=== PATIENT | male | born 1950 | race Caucasian/White ===

== ENCOUNTER 2024-10-23 11:39 | Emergency (ER) | payer MEDICARE ==
[2024-10-23 12:29] LABS: #Basophils 0.06 10x3/uL (0.0-0.2); #Eosinophils 0.23 10x3/uL (0.0-0.7); #Monocytes 0.78 10x3/uL (0.11-0.59); #Neutrophils 5.94 10x3/uL (1.40-6.50); %Basophils 0.7 % (0.0-1.0); %Eosinophils 2.6 % (0.0-10.0); %Lymphocytes 20.1 % (21.0-51.0); %Monocytes 8.9 % (0.0-10.0); %Neutrophils 67.4 % (42.0-75.0); Hematocrit 43.5 % (42.0-52.0); Hemoglobin 14.7 g/dL (14.0-18.0); Mean Corpuscular Hemoglobin 28.5 pg (27.0-31.0); Mean Corpuscular Volume 84.3 fL (78.0-98.0); Platelet Count 358 10x3/uL (130-400); Red Blood Cell (RBC) Count 5.16 mill/uL (4.70-6.10); White Blood Cell (WBC) Count 8.81 10x3/uL (4.8-10.8)
[2024-10-23 12:46] LABS: Bacteria/HPF None Seen HPF (None Seen); CAUTI Indications for Culture Dysuria,urgency,freq; Glucose, Urine (Dipstick) Normal (Negative); Leukocyte Negative Leu/uL (Negative); Protein, Urine (Dipstick) 10 mg/dL (Neg-Trace); RBC/HPF 0-3 HPF (0-3); Specific Gravity, Urine 1.027 (1.002-1.036); WBC/HPF 0-3 HPF (0-3)
[2024-10-23 12:47] LABS: Urine Culture Reflex No No
[2024-10-23] MEDS ORDERED: Iopamidol-370 76% 500 ML MDV (1 ML CHARGE) ONE (12:54)
[2024-10-23 13:07] LABS: Anion Gap 14 mmol/L (10-20); BUN (Urea Nitrogen) 16 mg/dL (8.4-25.7); Calc. Creatinine Clearance 0 mL/min (70-130); Carbon Dioxide 24 mmol/L (23-31); Chloride 103 mmol/L (98-107); Potassium 3.1 mmol/L (3.5-5.1); Sodium 138 mmol/L (136-145)
[2024-10-23 13:08] LABS: ALT (SGPT) 14 U/L (Less than 45); AST (SGOT) 34 U/L (11-34); Albumin 3.9 g/dL (3.1-4.5); Alkaline Phosphatase 111 U/L (40-110); Bilirubin, Total 0.4 mg/dL (0.3-1.2); Calcium 9.0 mg/dL (7.8-10.44); Globulin 3.5 g/dL (2.4-3.5); Glucose 119 mg/dL (83-110); Lipase 18 U/L (8-78)
[2024-10-23 13:11] LABS: Troponin I Less than 0.010 ng/mL (< 0.028)
[2024-10-23] MEDS ORDERED: Acetaminophen 325 MG TAB PO PRN (15:26)
[2024-10-23] MEDS ORDERED: Glucagon 1 MG/ML KIT IM PRN (15:26)
[2024-10-23] MEDS ORDERED: Dextrose 50% Abboject 50 ML SYRINGE SLOW IVP PRN (15:26)
[2024-10-23] MEDS ORDERED: hydrALAZINE 20 MG/ML VIAL SLOW IVP PRN (15:26)
[2024-10-23] MEDS ORDERED: Ondansetron PF 4 MG/2 ML Vial IVP PRN (15:26)
[2024-10-23] MEDS ORDERED: Acetaminophen/Codeine 30-300mg Tablet PO PRN (15:29)
[2024-10-23] MEDS ORDERED: Famotidine/PF 20 mg/2ml Vial ONE (16:04)
[2024-10-23] MEDS ORDERED: diphenhydrAMINE 50 MG/ML VIAL ONE (16:04)
[2024-10-23 16:07] LABS: INR-International Normal Ratio 1.1; PTT 32.8 sec (22.9-36.1); Prothrombin Time 13.8 sec (12.0-14.7)
[2024-10-23] MEDS ORDERED: Ketorolac Tromethamine 30 MG (1 mL) VIAL IVP SCH (18:00)
[2024-10-23] MEDS ORDERED: Famotidine/PF 20 mg/2ml Vial SLOW IVP SCH (21:00)
[2024-10-23] MEDS ORDERED: Famotidine 20 MG TAB PO SCH (21:00)
== END 2024-10-23 18:30 | disposition home or self-care (01) ==
LOC: ERS 11:39
DX: R19.7 Diarrhea, unspecified (principal); I10 Essential (primary) hypertension
CPT/HCPCS: 74177; 80053; 81001; 83690; 84484; 85025; 85610; 85730; J1200; J1308; J2543; J2919; Q9967; 82274; 96374; 96375; J7120

== ENCOUNTER 2024-10-25 09:13 | Observation (INO) | payer MEDICARE ==
[2024-10-25] MEDS ORDERED: Iopamidol 370 76% 100 ML VIAL ONE (10:00)
[2024-10-25] MEDS ORDERED: Ondansetron PF 4 MG/2 ML Vial ONE ×2 (10:35→16:31)
[2024-10-25 10:37] LABS: #Basophils 0.06 10x3/uL (0.0-0.2); #Eosinophils 0.19 10x3/uL (0.0-0.7); #Monocytes 0.71 10x3/uL (0.11-0.59); #Neutrophils 5.38 10x3/uL (1.40-6.50); %Basophils 0.7 % (0.0-1.0); %Eosinophils 2.4 % (0.0-10.0); %Lymphocytes 20.3 % (21.0-51.0); %Monocytes 8.9 % (0.0-10.0); %Neutrophils 67.2 % (42.0-75.0); Hematocrit 40.9 % (42.0-52.0); Hemoglobin 13.8 g/dL (14.0-18.0); Mean Corpuscular Hemoglobin 28.3 pg (27.0-31.0); Mean Corpuscular Volume 84.0 fL (78.0-98.0); Platelet Count 361 10x3/uL (130-400); Red Blood Cell (RBC) Count 4.87 mill/uL (4.70-6.10); White Blood Cell (WBC) Count 8.01 10x3/uL (4.8-10.8)
[2024-10-25 10:54] LABS: Bacteria/HPF None Seen HPF (None Seen); CAUTI Indications for Culture Pelvic or flank pain; Glucose, Urine (Dipstick) Normal (Negative); Leukocyte Negative Leu/uL (Negative); Protein, Urine (Dipstick) Negative (Neg-Trace); RBC/HPF 0-3 HPF (0-3); Specific Gravity, Urine 1.022 (1.002-1.036); WBC/HPF 0-3 HPF (0-3)
[2024-10-25 10:54] LABS: CRP, High Sensitivity at Bryan 0.57 mg/dL (< or = 0.5)
[2024-10-25 10:55] LABS: Urine Culture Reflex No No
[2024-10-25 10:55] LABS: ALT (SGPT) 13 U/L (Less than 45); AST (SGOT) 24 U/L (11-34); Albumin 3.4 g/dL (3.1-4.5); Alkaline Phosphatase 102 U/L (40-110); Anion Gap 16 mmol/L (10-20); BUN (Urea Nitrogen) 16 mg/dL (8.4-25.7); Bilirubin, Total 0.2 mg/dL (0.3-1.2); Calc. Creatinine Clearance 0 mL/min (70-130); Calcium 8.5 mg/dL (7.8-10.44); Carbon Dioxide 19 mmol/L (23-31); Chloride 107 mmol/L (98-107); Globulin 3.0 g/dL (2.4-3.5); Glucose 98 mg/dL (83-110); Lipase 21 U/L (8-78); Magnesium 2.1 mg/dL (1.6-2.6); Potassium 4.2 mmol/L (3.5-5.1); Sodium 138 mmol/L (136-145)
[2024-10-25] MEDS ORDERED: LevoFLOXacin D5W 500 mg (100 mL) BAG ONE (15:33)
[2024-10-25] MEDS ORDERED: metroNIDAZOLE 500 MG (100 mL) BAG ONE (15:33)
[2024-10-25] MEDS ORDERED: PROPOFOL 20 ML ONE (15:35)
[2024-10-25] MEDS ORDERED: fentaNYL PF 100 MCG/2 ML SYRINGE ONE (15:35)
[2024-10-25] MEDS ORDERED: Lidocaine 1% PF 5 ML VIAL ONE (15:36)
[2024-10-25] MEDS ORDERED: Rocuronium Bromide 10 MG/ML (10ML VIAL) ONE (15:36)
[2024-10-25] MEDS ORDERED: SUCCINYLCHOLINE/SOD CL,ISO/PF 200 MG/10 ML SYRINGE FS ONE (15:36)
[2024-10-25] MEDS ORDERED: PHENYLEPHRINE-NS 100 MCG/ML 10 ML SYRINGE ONE (16:05)
[2024-10-25] MEDS ORDERED: Bupivacaine 0.25% HCL 30 ML VIAL ONE (16:10)
[2024-10-25] MEDS ORDERED: SUGAMMADEX SODIUM 200 MG/2 ML VIAL ONE (16:28)
[2024-10-25 17:46] VITALS: BMI 29.9
[2024-10-25] MEDS: Acetaminophen 325 MG TAB PO PRN (17:55)
[2024-10-25] MEDS: Ketorolac Tromethamine 30 MG (1 mL) VIAL IVP SCH (17:56)
[2024-10-25] MEDS: hydrALAZINE 20 MG/ML VIAL SLOW IVP PRN (17:56)
[2024-10-25] MEDS: Famotidine/PF 20 mg/2ml Vial SLOW IVP SCH (19:40)
[2024-10-25] MEDS: Famotidine 20 MG TAB PO SCH (20:04)
[2024-10-25] MEDS: PNEUMOC 20-VAL CONJ-DIP CRM/PF 0.5 ML SYRINGE IM ONE (20:36)
[2024-10-26] MEDS: Ondansetron PF 4 MG/2 ML Vial IVP PRN (00:02)
[2024-10-26 04:15] VITALS: TEMP 97.8
[2024-10-26 07:05] LABS: #Basophils 0.04 10x3/uL (0.0-0.2); #Eosinophils 0.09 10x3/uL (0.0-0.7); #Monocytes 0.73 10x3/uL (0.11-0.59); #Neutrophils 9.29 10x3/uL (1.40-6.50); %Basophils 0.3 % (0.0-1.0); %Eosinophils 0.8 % (0.0-10.0); %Lymphocytes 12.5 % (21.0-51.0); %Monocytes 6.3 % (0.0-10.0); %Neutrophils 79.7 % (42.0-75.0); Hematocrit 43.4 % (42.0-52.0); Hemoglobin 14.5 g/dL (14.0-18.0); Mean Corpuscular Hemoglobin 27.7 pg (27.0-31.0); Mean Corpuscular Volume 83.0 fL (78.0-98.0); Platelet Count 375 10x3/uL (130-400); Red Blood Cell (RBC) Count 5.23 mill/uL (4.70-6.10); White Blood Cell (WBC) Count 11.66 10x3/uL (4.8-10.8)
[2024-10-26 07:24] LABS: Anion Gap 14 mmol/L (10-20); BUN (Urea Nitrogen) 8 mg/dL (8.4-25.7); Calc. Creatinine Clearance 117 mL/min (70-130); Calcium 8.6 mg/dL (7.8-10.44); Carbon Dioxide 23 mmol/L (23-31); Chloride 103 mmol/L (98-107); Glucose 99 mg/dL (83-110); Potassium 3.6 mmol/L (3.5-5.1); Sodium 136 mmol/L (136-145)
[2024-10-26] MEDS ORDERED: APALUTAMIDE 240 MG PO SCH ×2 (09:00)
[2024-10-26] MEDS: Losartan 25 MG TAB PO SCH (09:22)
[2024-10-26 11:33] VITALS: BP 176/95
== END 2024-10-26 14:27 | disposition home or self-care (01) ==
LOC: ERS 09:13 → SURG A 14:07
PROVIDERS: ADMIT Surgery; ATTEND Surgery
PROC: 0DTJ4ZZ Resection of Appendix, Percutaneous Endoscopic Approach (ICD-10-PCS; principal; 2024-10-25)
DX: D12.1 Benign neoplasm of appendix (principal); I10 Essential (primary) hypertension; Z86.73 Personal history of transient ischemic attack (TIA), and cerebral infarction without residual deficits; Z85.46 Personal history of malignant neoplasm of prostate; Z90.49 Acquired absence of other specified parts of digestive tract; Z98.890 Other specified postprocedural states; Z88.0 Allergy status to penicillin; Z88.1 Allergy status to other antibiotic agents; Z79.899 Other long term (current) drug therapy
CPT/HCPCS: 44970; 74177; 76705; 80048; 80053; 81001; 83690; 83735; 85025 ×2; 86141; 96374; 96375 ×2; 96376; 99285; G0378 ×2; J0169; J0360; J0665; J1308; J1885 ×2; J1956; J2270 ×2; J2405 ×2; J2704; J7120; Q9967; 36416; 88304